=== PATIENT | female | born 1975 | race Caucasian/White ===

== ENCOUNTER 2017-10-06 23:28 | Emergency (ER) | payer BC, OTHER ==
[~2017-10-06] VITALS: Ht 152.4 cm; Wt 78.0 kg
[2017-10-06 23:37] VITALS: Ht 152.4 cm; Wt 78.0 kg
[2017-10-07 00:05] LABS: BASOPHILS % 0.2 % (0.0-2.0); EOSINOPHILS # 0.2 10^3/ul (0.0-0.5); EOSINOPHILS % 1.9 % (0.0-7.0); LYMPHOCYTES # 3.4 10^3/ul (0.8-2.9); LYMPHOCYTES % 42.5 % (15.0-51.0); MEAN CORPUSCULAR HEMOGLOBIN 29.1 pg (29.0-33.0); MEAN CORPUSCULAR HGB CONC 34.2 g/dl (32.0-37.0); MEAN PLATELET VOLUME 10.6 fl (7.4-10.4); MONOCYTE # 0.6 10^3/ul (0.3-0.9); NEUTROPHIL # 3.9 10^3/ul (1.6-7.5); NEUTROPHILS % 48.2 % (39.0-77.0); PLATELET COUNT 215 10^3/UL (140-415); RED BLOOD COUNT 4.47 10^6/ul (4.20-5.40); RED CELL DISTRIBUTION WIDTH 12.5 % (11.5-14.5)
--- NOTE | 2017-10-07 00:07 | RADRPT ---
PROCEDURE: X-ray Chest. CLINICAL INDICATION: Chest pain. TECHNIQUE: Single view chest x-ray. COMPARISON: None available. FINDINGS: The cardiomediastinal silhouette is within normal limits. The lungs are clear without f ocal consolidation, effusion, or pneumothorax. There are no acute osseous abnormalities. IMPRESSION: 1. No acute cardiopulmonary abnormality. RPTAT: HLBP .Marciano Vo MD, MD Date Time Electronically viewed and signed by .Marciano Vo MD, on 10/07/2017 00:06 .P/
[2017-10-07 00:26] LABS: ANION GAP 15 (8-16); BLOOD UREA NITROGEN 21 mg/dl (7-20); CALCIUM 9.1 mg/dl (8.4-10.2); CARBON DIOXIDE 25 mmol/L (21-31); CHLORIDE 103 mmol/L (97-110); CREATININE 0.84 mg/dl (0.44-1.00); GLUCOSE 141 mg/dl (70-220); POTASSIUM 4.1 mmol/L (3.5-5.1); SODIUM 139 mmol/L (135-144)
[2017-10-07 00:50] LABS: TROPONIN-I < 0.012 ng/ml (0.00-0.12)
[2017-10-07] MEDS ORDERED: FAMOTIDINE 20 MG TAB PO STA (00:59)
[2017-10-07] MEDS ORDERED: METOCLOPRAMIDE 10 MG INJ IV STA (00:59)
[2017-10-07] MEDS ORDERED: LIDOCAINE/MYLANTA 40 ML BTL PO STA (00:59)
--- NOTE | 2017-10-07 04:45 | ERD ---
ER Documentation Chief Complaint Chief Complaint BIBRA c/o CP, non-provoked, pressure like, radiates to left hand x 40 min HPI 42 year old female presents with central chest pain that started 1 hour ago while sitting. Chest pain is located at the center and left side of the chest, nonradiating. No alleviating or exacerbating factors. Pain is not exertional. + associated shortness of breath, now resolved. She has had reflux symptoms since this morning after eating spicy food yesterday. No nausea, vomiting, sweats. No history of previous chest pain or shortness with exertion. No previous history of [place], no family history of MIs at 40s, 50s. No ripping or tearing sensation. Not pleuritic. No unilateral leg swelling, hemoptysis, recent surgery/immobilization in 4 weeks, history of DVT/PE, or estrogen hormone use. ROS All systems reviewed and are negative except as per history of present illness. Medications Home Meds Active Scripts Famotidine* (Pepcid*) 20 Mg Tablet, 20 MG PO BID for 14 Days, TAB Prov:PAULINO COREA MD 10/07/17 Allergies Allergies: Coded Allergies: No Known Allergy (Unverified , 10/06/17) PMhx/Soc Medical and Surgical Hx: pt denies Medical Hx History of Surgery: Yes Hx Alcohol Use: No Hx Substance Use: No Hx Tobacco Use: No Smoking Status: Current every day smoker FmHx Family History: No coronary disease, No diabetes Physical Exam Vitals Vital Signs Date Time Temp Pulse Resp B/P Pulse Ox O2 Delivery O2 Flow Rate FiO2 10/07/17 05:56 98.2 75 16 104/63 Room Air 10/07/17 01:10 73 16 117/59 99 Room Air 10/07/17 00:36 98.1 74 16 124/58 99 Room Air 10/06/17 23:45 98.0 79 16 137/71 99 Room Air 10/06/17 23:37 98.2 82 16 132/86 99 Physical Exam Const: well-appearing, no apparent distress Head: Atraumatic Eyes: Normal Conjunctiva ENT: Normal External Ears, Nose and Mouth. Neck: Full range of motion..~ No meningismus. Resp: Clear to auscultation bilaterally Cardio: Regular rate and rhythm, no murmurs. 2+ distal pulses Abd: Soft, non tender, non distended. Normal bowel sounds Skin: No petechiae or rashes Back: No midline or flank tenderness Ext: No cyanosis, or edema Neur: Awake and alert Psych: Normal Mood and Affect Result Diagram: 10/06/17 2347 10/06/17 2347 Results 24 hrs Laboratory Tests Test 10/06/17 23:47 10/06/17 23:50 10/07/17 04:16 White Blood Count 8.010^3/ul Red Blood Count 4.4710^6/ul Hemoglobin 13.0g/dl Hematocrit 38.0% Mean Corpuscular Volume 85.0fl Mean Corpuscular Hemoglobin 29.1pg Mean Corpuscular Hemoglobin Concent 34.2g/dl Red Cell Distribution Width 12.5% Platelet Count 44987^3/UL Mean Platelet Volume 10.6fl Neutrophils % 48.2% Lymphocytes % 42.5% Monocytes % 7.0% Eosinophils % 1.9% Basophils % 0.2% Nucleated Red Blood Cells % 0.0/100WBC Neutrophils # 3.910^3/ul Lymphocytes # 3.410^3/ul Monocytes # 0.610^3/ul Eosinophils # 0.210^3/ul Basophils # 0.010^3/ul Nucleated Red Blood Cells # 0.010^3/ul Sodium Level 139mmol/L Potassium Level 4.1mmol/L Chloride Level 103mmol/L Carbon Dioxide Level 25mmol/L Anion Gap 15 Blood Urea Nitrogen 21mg/dl Creatinine 0.84mg/dl Glucose Level 141mg/dl Calcium Level 9.1mg/dl Troponin I < 0.012ng/ml < 0.012ng/ml Serum HCG, Qualitative NEGATIVE Bedside Glucose 131mg/dL Current Medications Medications (Trade) Dose Ordered Sig/David Route PRN Reason Start Time Stop Time Status Last Admin Dose Admin Metoclopramide HCl (Reglan) 10 mg ONCE STAT IV 10/07/17 00:59 10/07/17 01:00 DC 10/07/17 01:05 Famotidine (Pepcid) 20 mg ONCE STAT PO 10/07/17 00:59 10/07/17 01:00 DC 10/07/17 01:05 Miscellaneous Medication (Gi Cocktail (2)) 40 ml ONCE STAT PO 10/07/17 00:59 10/07/17 01:00 DC 10/07/17 01:05 Procedures/MDM EKG #1: Rate/Rhythm: Normal sinus rhythm QRS, ST, T-waves: No changes consistent w/ acute ischemia Impression: No evidence of ischemia or arrhythmia EKG #2: Rate/Rhythm: Normal sinus rhythm QRS, ST, T-waves: No changes consistent w/ acute ischemia Impression: No evidence of ischemia or arrhythmia Labs CBC: no anemia or evidence of infection CMP: Unremarkable Troponin within normal limits Repeat troponin within normal limits Chest x-ray shows no acute abnormalities MDM The patient presents with chest pain. Vitals are stable. I considered pulmonary embolism, aortic dissection, pneumothorax among other diagnoses. Evaluation for acute coronary syndrome was performed. The HEART score was utilized for risk stratification and found to be 1. Repeat EKG and troponin @ 3 hours were unchanged. Based on this evaluation the patient's risk of major adverse cardiac events is <1%. Shared decision making occurred with patient and the decision has been made to discharge the patient for outpatient evaluation and functional study within 72 hours. Patient instructed to arrange follow up with PCP in the next 2 days and return to the ED for any new or worsening symptoms. Departure Diagnosis: Primary Impression: Chest pain Chest pain type: unspecified Qualified Code: R07.9 - Chest pain, unspecified type Condition: Stable EKPAULINO MIJARES MD Oct 07, 2017 04:45
[2017-10-07] MEDS ORDERED: FAMO-96 PO (04:47)
[2017-10-07 05:56] VITALS: BP 104/63; PULSE 75; RESP 16; TEMP 98.2
== END 2017-10-07 05:58 | disposition home or self-care (01) ==
LOC: EDSEX 23:28 → E/R 23:28
DX: R07.89 Other chest pain (principal); F17.210 Nicotine dependence, cigarettes, uncomplicated
CPT/HCPCS: 36415; 71010; 80048; 82962; 84484; 84703; 85025; 93005; 96374; 99285; J2765